=== PATIENT | male | born 1985 ===

== ENCOUNTER 2022-01-20 08:14 | Emergency (ER) | payer OTHER, SELFPAY ==
[2022-01-20 08:32] VITALS: BP 146/75; PULSE 73; RESP 20; TEMP 36.9; O2SAT 100; BMI 30.5
--- NOTE | 2022-01-20 08:50 | ED.URI ---
HPI - URI/Sore Throat General Chief Complaint: Upper Respiratory Symptoms Stated Complaint: suspected RSV Time Seen by Provider: 01/20/22 08:30 Source: patient Mode of arrival: Ambulatory Limitations: no limitations History of Present Illness HPI Narrative: This is a 36-year-old male who denies any medical issues or daily medications. Patient has had 1-2 days of congestion, cough and nausea as well as body aches. Patient presents with significant other and child who have had similar symptoms. Patient denies any other issues or concerns currently. Related Data Allergies Allergy/AdvReac Type Severity Reaction Status Date / Time No Known Drug Allergies Allergy Verified 01/20/22 08:36 Review of Systems Review of Systems ROS Unobtainable: All systems reviewed & are unremarkable except as noted in HPI and below Patient History Social History Smoking Status: Never smoker Smoking Status: Never smoker Substance Use Type: does not use Exam Narrative Exam Narrative: GEN: well nourished, well appearing male, alert and oriented x 3, patient appears to be in mild distress. HEENT: Atraumatic, pupils are equal round reactive to light, extraocular movements are intact, mild nasal congestion, TMs are clear with no fluid, there is no conjunctival pallor. Throat is clear without any exudates, erythema, tonsillar enlargement or uvular deviation HEART: Regular rate and rhythm without murmur, clicks, rubs. LUNGS:Lungs clear to auscultation, no wheezes, rales, crackles, chest moves symmetrically. No tachypnea or accessory muscle use. ABD:bowel sounds normal, soft, non-tender, no guarding, rebound, rigidity, no masses noted, no hepatosplenomegaly MSCL: Non-tender, no muscle atrophy, muscles strength 5/5 upper and lower extremities, full range of motion, normal gait NEURO:CN 2-12 intact, sensation normal SKIN: No rash, erythema or other skin changes. Initial Vital Signs Initial Vital Signs: Vital Signs Temperature 98.5 F 01/20/22 08:32 Pulse Rate 73 01/20/22 08:32 Respiratory Rate 20 01/20/22 08:32 Blood Pressure 146/75 H 01/20/22 08:32 Pulse Oximetry 100 01/20/22 08:32 Oxygen Delivery Method 01/20/22 08:32 Course Orders Ordered: ED Orders 01/20/22 08:32 Covid-19 + FLU A/B + RSV - PCR Stat Vital Signs Vital signs: Vital Signs - 8 hr 01/20/22 08:32 Temperature 98.5 F Pulse Rate 73 Respiratory Rate 20 Blood Pressure 146/75 H Pulse Oximetry 100 Oxygen Delivery Method Room Air MDM - URI/Sore Throat Lab Data Labs: Lab Results 01/20/22 Range/Units 08:32 SARS-CoV-2 (PCR) Negative (Negative) Influenza A (RT-PCR) Flu a positive H (NEGATIVE) Influenza B (RT-PCR) Flu b negative (NEGATIVE) RSV (PCR) Negative (Negative) MDM Narrative Medical decision making narrative: 36-year-old healthy male positive for influenza a along with rest of his family. Discussed Tamiflu they are technically within the window but after discussion they defer. Discharge Plan Departure Patient Disposition: Home Clinical Impression: Influenza A Instructions: DI for Influenza -- Adult Activity Restrictions/Additional Instructions: You did test positive for influenza A today. Viral illnesses typically last about 10 days total. You may take Tylenol and/or ibuprofen as needed for body aches or fever. Please return for new chest pain, shortness of breath, passing out, persistent vomiting or other new or concerning changes. Visit Report Forms: Patient Portal/API
[2022-01-20 09:27] LABS: Influenza A - CEPHEID Flu A POSITIVE (NEGATIVE); Influenza B - CEPHEID Flu B NEGATIVE (NEGATIVE); Respiratory Syncytial Virus Negative (Negative)
[2022-01-20 09:54] LABS: COVID-19 CEPHEID 4-PLEX PCR Negative (Negative)
== END 2022-01-20 10:51 | disposition home or self-care (01) ==
PROVIDERS: Emergency Provider Emergency Medicine
DX: J09.X2 Influenza due to identified novel influenza A virus with other respiratory manifestations (principal)
CPT/HCPCS: 0241U; 99281; 99282

== ENCOUNTER → 2023-02-25 14:07 | Outpatient (CLI) | payer OTHER, SELFPAY ==
--- NOTE | 2023-02-25 14:08 | DI.MRI.S_ITS ---
PROCEDURE: MR LUMBAR SPINE WO CON INDICATIONS: Low back pain, unspecified TECHNIQUE: Noncontrast sagittal T1 spin echo and T2 fast echo, sagittal STIR, and T2 fast spin echo through the lumbar spine. In cases with scoliosis, additional coronal T2 fast spin echo may be performed. COMPARISON: None. FINDINGS: Image quality: Excellent. Alignment and Curvature: There is normal bony alignment. Bone Marrow: Marrow is of normal overall signal. No acute vertebral body compression fractures. Spinal Cord: Conus medullaris terminates at the L1 level. Visualized cord demonstrates normal signal and size. Paraspinous Soft Tissues: No paravertebral masses. T12-L1: Normal appearance. L1-L2: Normal appearance. L2-L3: Normal appearance. L3-L4: Mild disc space narrowing and circumferential disc bulge present. No central or foraminal stenosis L4-L5: Disc space is preserved. Mild disc bulge. No central or foraminal stenosis L5-S1: Disc space narrowing and posterior disc bulge mild central stenosis. Moderate left and no right foraminal stenosis IMPRESSION: Multilevel degenerative disc disease and arthropathy results in varying degrees of central and foraminal stenosis including moderate left foraminal stenosis L5-S1 Approved by: Avel Acosta M.D. on 02/27/2023 at 15:35
== END ==
PROVIDERS: Referring Provider Preventive Medicine Aerospace Medicine; Visit Provider Preventive Medicine Aerospace Medicine
DX: M51.36 Other intervertebral disc degeneration, lumbar region (principal); M51.37 Other intervertebral disc degeneration, lumbosacral region; M47.816 Spondylosis without myelopathy or radiculopathy, lumbar region; M47.817 Spondylosis without myelopathy or radiculopathy, lumbosacral region; M48.07 Spinal stenosis, lumbosacral region; M54.50 Low back pain, unspecified
CPT/HCPCS: 72148